=== PATIENT | female | born 1960 | race Caucasian/White ===

== ENCOUNTER → 2016-09-10 | Outpatient (CLI) | payer BC ==
[~2016-09-10] MED LIST: DEXAMETHASONE 4 MG/ML VIAL ONE; LIDOCAINE 2% 100 MG/5 ML SYR ONE; ONDANSETRON 4 MG/2 ML VIAL ONE; PROPOFOL 200 MG/20 ML VIAL ONE; ROCURONIUM 50 MG/5 ML VIAL ONE; SUGAMMADEX SODIUM 200 MG/2 ML VIAL IVP ONE; fentaNYL 100 MCG/2 ML INJ ONE
== END ==
LOC: CIMAGING 07:36
PROVIDERS: ATTEND Family Medicine
DX: K76.0 Fatty (change of) liver, not elsewhere classified (principal); K80.20 Calculus of gallbladder without cholecystitis without obstruction
CPT/HCPCS: 76700-PO; J1100; J2001; J2405; J2704; J3010

== ENCOUNTER 2016-09-12 13:51 | Observation (INO) | payer BC ==
[2016-09-12] MEDS ORDERED: BUPIVACAINE 0.5% 30 ML SDV ONE (13:54)
[2016-09-12] MEDS ORDERED: MIDAZOLAM 2 MG/2 ML VIAL ONE (14:11)
[2016-09-12] MEDS ORDERED: LIDOCAINE 1% 2 ML INJ ONE (14:12)
[2016-09-12] MEDS ORDERED: LR 1,000 ML IV ONE (14:24)
[2016-09-12] MEDS ORDERED: LIDOCAINE 1% 5 ML SDV ID PRN (14:24)
[2016-09-12] MEDS ORDERED: cefOXitin SODIUM 1 GM in D5W 50 ML IV ONE (14:30)
[2016-09-12] MEDS ORDERED: ADENOSINE 6 MG/2 ML VIAL ONE ×2 (15:03→15:06)
[2016-09-12] MEDS ORDERED: ONDANSETRON 4 MG/2 ML VIAL IVP PRN (15:23)
[2016-09-12] MEDS: METOPROLOL TARTRATE 50 MG TAB PO SCH (17:23)
[2016-09-12] MEDS: D5W 1/2 NS W/ 20 KCl/L 1,000 ML IV SCH (17:27)
--- NOTE | 2016-09-12 18:50 | SOAPPROG ---
SOAP Progress Note Assessment/Plan: Assessment: UNABLE TO DO PROCEDURE TODAY BECAUSE OF RAPID SVT DEVELOPING AFTER INDUCTION OF ANESTHESIA PATIENT IN SINUS RHYTHM NOW AFTER CONVERSION WITH ADENOSINE INITIATION OF BETA BLOCKADE Plan: A TEMP LAP CHOLY TOMORROW I FOR RHYTHM IS STABLE / SHE HAS BEEN SEEN BY CARDIOLOGY TO APPROVE THIS APPROACH 09/12/16 18:49 Objective: Vital Signs Temp Pulse Resp BP Pulse Ox 37 C 95 16 116/78 96 09/12/16 16:49 09/12/16 17:23 09/12/16 16:49 09/12/16 17:23 09/12/16 16:49 09/11/16 09/12/16 09/13/16 05:59 05:59 05:59 Intake Total 1000 Balance 1000 ICD10 Worksheet Patient Problems: Problems Problem Status Onset Chest pain Active Dyspnea Active
--- NOTE | 2016-09-12 18:51 | POSTOPPROG ---
Post Op Note Date of Operation: 09/12/16 Surgeon: Preet Lucero Anesthesiologist: MICHOACANO Anesthesia: GET(General Endotracheal) Pre-op Diagnosis: ACUTE CHOLECYSTITIS Post-op Diagnosis: SAME PLUS SVT Indication: PAIN Procedure: GENERAL ANESTHESIA Findings: PROCEDURE WAS TERMINATED BECAUSE OF DEVELOPMENT OF RAPID SVT Inf/Abcess present in the surg proc area at time of surgery?: No EBL: Minimal Complications: SVT
[2016-09-12] MEDS: HYDROmorphONE/DILAUDID 1 MG/ML SYR IVP PRN (22:12)
[2016-09-13] MEDS: D5W 1/2 NS W/ 20 KCl/L 1,000 ML IV SCH ×2 (02:06→12:29)
[2016-09-13] MEDS: HYDROmorphONE/DILAUDID 1 MG/ML SYR IVP PRN ×3 (02:11→17:18)
[2016-09-13 04:32] LABS: % IMMATURE GRANULYOCYTES 0.4 % (0.0-1.1); ABSOLUTE IMMATURE GRANULOCYTES 0.04 10^3/uL (0.00-0.10); ADD DIFF? NO; ADD MORPH? NO; ADD SCAN? NO; ATYPICAL LYMPHOCYTE FLAG 0 (0-99); FRAGMENT RBC FLAG 0 (0-99); HEMATOCRIT 44.6 % (38.0-47.0); LEFT SHIFT FLG 0 (0-99); LIPEMIA HEMOLYSIS FLAG 80 (0-99); MEAN CELL HEMOGLOBIN 29.6 pg (27.9-34.1); MEAN CELL HEMOGLOBIN CONCENTR. 33.6 g/dL (32.4-36.7); MEAN PLATELET VOLUME 9.8 fL (8.7-11.7); PLATELET CLUMPS FLAG 10 (0-99); PLATELET COUNT 279 10^3/uL (150-400); RED BLOOD CELL COUNT 5.07 10^6/uL (4.18-5.33); RED CELL DISTRIBUTION WIDTH 12.4 % (11.5-15.2)
[2016-09-13 05:01] LABS: ALANINE AMINOTRANSFERASE 54 IU/L (9-52); ALBUMIN 4.5 g/dL (3.5-5.0); ALKALINE PHOSPHATASE 59 IU/L (38-126); AMYLASE 43 IU/L (30-110); ANION GAP 14 mEq/L (8-16); ASPARTATE AMINOTRANSFERASE 30 IU/L (14-46); BILIRUBIN,TOTAL 0.7 mg/dL (0.1-1.4); BILIRUBIN-CONJUGATED 0.2 mg/dL (0.0-0.5); BILIRUBIN-UNCONJUGATED 0.5 mg/dL (0.0-1.1); CALCIUM 10.3 mg/dL (8.5-10.4); CARBON DIOXIDE 20 mEq/l (22-31); CHLORIDE 106 mEq/L (97-110); CREATININE 0.7 mg/dL (0.6-1.0); GLOMERULAR FILTRATION RATE > 60; GLUCOSE 146 mg/dL (70-100); SODIUM 140 mEq/L (134-144); TOTAL PROTEIN 6.9 g/dL (6.3-8.2)
[2016-09-13] MEDS ORDERED: cefOXitin SODIUM 2 GM in D5W 100 ML IV ONE (10:00)
[2016-09-13] MEDS ORDERED: BUPIVACAINE 0.5% 30 ML SDV ONE ×2 (10:48→14:46)
[2016-09-13] MEDS: METOPROLOL TARTRATE 50 MG TAB PO SCH ×2 (10:49→21:00)
[2016-09-13] MEDS ORDERED: PROPOFOL/EMULSION 500 MG/50 ML BOTTLE IV ONE (13:44)
[2016-09-13] MEDS ORDERED: PROPOFOL 200 MG/20 ML VIAL ONE (13:44)
[2016-09-13] MEDS ORDERED: LIDOCAINE 2% 5 ML SDV ONE (13:45)
[2016-09-13] MEDS ORDERED: ROCURONIUM 50 MG/5 ML VIAL ONE (13:45)
[2016-09-13] MEDS ORDERED: ADENOSINE 6 MG/2 ML VIAL ONE (14:12)
[2016-09-13] MEDS ORDERED: MIDAZOLAM 2 MG/2 ML VIAL ONE (14:26)
[2016-09-13] MEDS ORDERED: GLYCOPYRROLATE 0.2 MG/1 ML VIAL ONE (14:41)
[2016-09-13] MEDS ORDERED: DEXAMETHASONE 4 MG/ML VIAL ONE (14:55)
[2016-09-13] MEDS ORDERED: ONDANSETRON 4 MG/2 ML VIAL ONE (15:21)
[2016-09-13] MEDS ORDERED: SUGAMMADEX SODIUM 200 MG/2 ML VIAL IVP ONE (15:22)
[2016-09-13] MEDS ORDERED: KETOROLAC 30 MG/1 ML SDV ONE (15:39)
[2016-09-13] MEDS ORDERED: fentaNYL 100 MCG/2 ML INJ ONE ×2 (15:41→16:15)
[2016-09-13] MEDS ORDERED: HYDROmorphONE/DILAUDID 2 MG/ML INJ ONE (15:50)
[2016-09-13] MEDS ORDERED: DIAZEPAM 10 MG/2 ML SYR ONE (15:55)
--- NOTE | 2016-09-13 15:55 | SOAPPROG ---
SOAP Progress Note Assessment/Plan: Assessment: UNABLE TO DO PROCEDURE TODAY BECAUSE OF RAPID SVT DEVELOPING AFTER INDUCTION OF ANESTHESIA PATIENT IN SINUS RHYTHM NOW AFTER CONVERSION WITH ADENOSINE INITIATION OF BETA BLOCKADE Plan: A TEMP AIDAN ZABALA TOMORROW I FOR RHYTHM IS STABLE / SHE HAS BEEN SEEN BY CARDIOLOGY TO APPROVE THIS APPROACH 09/12/16 18:49 09/13/16 15:53 RISKS AND OPTIONS FULLY DISCUSSED/ NSR/ WILL PROCEED WITH AIDAN VELEZ Objective: Vital Signs Temp Pulse Resp BP Pulse Ox 36.7 C 54 L 18 123/83 H 93 09/13/16 10:51 09/13/16 12:36 09/13/16 10:51 09/13/16 10:51 09/13/16 10:51 Laboratory Results 09/13/16 03:44 09/13/16 03:44 09/12/16 09/13/16 09/14/16 05:59 05:59 05:59 Intake Total 2850 Balance 2850 ICD10 Worksheet Patient Problems: Problems Problem Status Onset Chest pain Active Dyspnea Active
[2016-09-13] MEDS ORDERED: LABETALOL HCL 50 MG/10 ML SYR ONE (15:56)
--- NOTE | 2016-09-13 15:59 | POSTOPPROG ---
Post Op Note Date of Operation: 09/13/16 Surgeon: Preet Lucero Anesthesiologist: MIC JACOBO Anesthesia: GET(General Endotracheal) Pre-op Diagnosis: CHOLECYSTITIS AND CHOLELITHIASIS Post-op Diagnosis: SAME Indication: PAIN Procedure: LAP CHOLY Findings: SINGLE LARGE STONE STUCK THE NECK OF THE GALLBLADDER / SMALL DUCTS Inf/Abcess present in the surg proc area at time of surgery?: Yes Depth: Organ Space EBL: Minimal Complications: NONE Specimen(s): GALLBLADDER
[2016-09-13] MEDS ORDERED: ACETAMINOPHEN 325 MG TAB PO PRN (17:48)
[2016-09-13] MEDS ORDERED: ACETAMINOPHEN/ASA/CAFFEINE 1 EACH TAB PO PRN (17:49)
[2016-09-13] MEDS ORDERED: HYDROmorphONE/DILAUDID 6 MG/30 ML PCA IV PRN (17:50)
[2016-09-13] MEDS ORDERED: NALOXONE HCL 0.4 MG/ML INJ IVP PRN (17:50)
[2016-09-13] MEDS ORDERED: GABAPENTIN 300 MG CAP PO PRN (19:47)
[2016-09-13] MEDS ORDERED: NON-FORMULARY NEW DRUG (Gabapentin [Neurontin] 600 MG) PO SCH (21:00)
[2016-09-13] MEDS: metFORMIN HCL 500 MG TAB PO SCH (21:03)
[2016-09-13] MEDS: GABAPENTIN 300 MG CAP PO SCH (21:03)
[2016-09-13] MEDS: THYROID PO SCH (21:04)
--- NOTE | 2016-09-14 06:49 | SOAPPROG ---
SOAP Progress Note Assessment/Plan: Assessment: Plan: 56yo F POD#1 s/p lap axel - No reported rhythm issues overnight - Tolerating clears, have advanced diet this AM - Abdominal exam reassuring, incisions c/d/i - Pain controlled, will use some oral narcotics this AM - If food goes well plan for dc later today 09/14/16 06:48 Objective: Vital Signs Temp Pulse Resp BP Pulse Ox 36.5 C 66 16 122/70 H 94 09/14/16 03:45 09/14/16 03:45 09/14/16 03:45 09/14/16 03:45 09/14/16 03:45 Laboratory Results 09/13/16 03:44 09/13/16 03:44 09/13/16 09/14/16 09/15/16 05:59 05:59 05:59 Intake Total 2850 3600 Output Total 10 Balance 2850 3590 ICD10 Worksheet Patient Problems: Problems Problem Status Onset Chest pain Active Dyspnea Active
[2016-09-14] MEDS: metFORMIN HCL 500 MG TAB PO SCH ×2 (08:27→20:45)
[2016-09-14] MEDS: PANTOPRAZOLE SODIUM 40 MG TAB PO SCH (08:28)
[2016-09-14] MEDS: HYDROCODONE/APAP 5/325 TAB PO PRN ×3 (08:28→20:46)
[2016-09-14] MEDS: GABAPENTIN 300 MG CAP PO SCH ×2 (08:30→20:45)
[2016-09-14] MEDS: METOPROLOL TARTRATE 50 MG TAB PO SCH ×2 (08:31→20:46)
[2016-09-14] MEDS: NON-FORMULARY NEW DRUG (Omeprazole [Prilosec 20 Mg] 20 MG) PO SCH (08:33)
[2016-09-14] MEDS: CANAGLIFLOZIN 100 MG PO SCH (08:44)
[2016-09-14] MEDS ORDERED: NON-FORMULARY NEW DRUG (Omeprazole [Prilosec 20 Mg] 20 MG) PO SCH (09:00)
--- NOTE | 2016-09-14 14:16 | SOAPPROG ---
SOAP Progress Note Assessment/Plan: Assessment: UNABLE TO DO PROCEDURE TODAY BECAUSE OF RAPID SVT DEVELOPING AFTER INDUCTION OF ANESTHESIA PATIENT IN SINUS RHYTHM NOW AFTER CONVERSION WITH ADENOSINE INITIATION OF BETA BLOCKADE Plan: A TEMP AIDAN ZABALA TOMORROW I FOR RHYTHM IS STABLE / SHE HAS BEEN SEEN BY CARDIOLOGY TO APPROVE THIS APPROACH 09/12/16 18:49 09/13/16 15:53 RISKS AND OPTIONS FULLY DISCUSSED/ NSR/ WILL PROCEED WITH AIDAN VELEZ 09/14/16 14:15 SOME NAUSEA AFTER EATING TOO MUCH / AFEBRILE /VITAL SIGNS OKAY/ WOUNDS OKAY/ ABDOMEN SOFT WITH SLIGHT DISTENTION / POSSIBLY HOME TODAY OR IN THE A.M. Objective: Vital Signs Temp Pulse Resp BP Pulse Ox 36.4 C 71 18 120/63 88 L 09/14/16 12:53 09/14/16 12:53 09/14/16 12:53 09/14/16 12:53 09/14/16 12:53 Laboratory Results 09/13/16 03:44 09/13/16 03:44 09/13/16 09/14/16 09/15/16 05:59 05:59 05:59 Intake Total 2850 3600 500 Output Total 10 Balance 2850 3590 500 ICD10 Worksheet Patient Problems: Problems Problem Status Onset Chest pain Active Dyspnea Active
[2016-09-14] MEDS: THYROID PO SCH (20:44)
[2016-09-15] MEDS: HYDROCODONE/APAP 5/325 TAB PO PRN (03:06)
[2016-09-15 07:24] VITALS: BP 107/61; PULSE 67; RESP 20; TEMP 97.8; O2SAT 91
[2016-09-15] MEDS: CANAGLIFLOZIN 100 MG PO SCH (07:51)
[2016-09-15] MEDS: metFORMIN HCL 500 MG TAB PO SCH (07:53)
[2016-09-15] MEDS: GABAPENTIN 300 MG CAP PO SCH (07:53)
[2016-09-15] MEDS: METOPROLOL TARTRATE 50 MG TAB PO SCH (07:54)
[2016-09-15] MEDS: NON-FORMULARY NEW DRUG (Omeprazole [Prilosec 20 Mg] 20 MG) PO SCH (07:55)
[2016-09-15] MEDS: THYROID PO SCH (07:56)
[2016-09-15] MEDS: PANTOPRAZOLE SODIUM 40 MG TAB PO SCH (07:56)
--- NOTE | 2016-09-15 11:31 | SOAPPROG ---
ENRRIQUE Progress Note Assessment/Plan: Assessment: UNABLE TO DO PROCEDURE TODAY BECAUSE OF RAPID SVT DEVELOPING AFTER INDUCTION OF ANESTHESIA PATIENT IN SINUS RHYTHM NOW AFTER CONVERSION WITH ADENOSINE INITIATION OF BETA BLOCKADE Plan: A TEMP AIDAN ZABALA TOMORROW I FOR RHYTHM IS STABLE / SHE HAS BEEN SEEN BY CARDIOLOGY TO APPROVE THIS APPROACH 09/12/16 18:49 09/13/16 15:53 RISKS AND OPTIONS FULLY DISCUSSED/ NSR/ WILL PROCEED WITH AIDAN VELEZ 09/14/16 14:15 SOME NAUSEA AFTER EATING TOO MUCH / AFEBRILE /VITAL SIGNS OKAY/ WOUNDS OKAY/ ABDOMEN SOFT WITH SLIGHT DISTENTION / POSSIBLY HOME TODAY OR IN THE A.M. 09/15/16 11:30 DOING OK/ AFEBRILE/ EATING WELL/ HOME ON BETEBLOCKERS/ FU NEXT WEEK/ FU WITH CARDIOLOGY Objective: Vital Signs Temp Pulse Resp BP Pulse Ox 36.6 C 67 20 107/61 91 L 09/15/16 07:21 09/15/16 07:21 09/15/16 07:21 09/15/16 07:21 09/15/16 07:21 Laboratory Results 09/13/16 03:44 09/13/16 03:44 09/14/16 09/15/16 09/16/16 05:59 05:59 05:59 Intake Total 3600 1850 Output Total 10 Balance 3590 1850 ICD10 Worksheet Patient Problems: Problems Problem Status Onset Chest pain Active Dyspnea Active
== END 2016-09-15 13:19 | disposition home or self-care (01) ==
LOC: INTOOBSV 13:51 → F3E 13:51 → F2W 16:24
PROVIDERS: ADMIT Surgery; ATTEND Surgery
PROC: 0FT44ZZ Resection of Gallbladder, Percutaneous Endoscopic Approach (ICD-10-PCS; principal; 2016-09-13 13:45)
DX: K80.61 Calculus of gallbladder and bile duct with cholecystitis, unspecified, with obstruction (principal); I47.1 Supraventricular tachycardia; K21.9 Gastro-esophageal reflux disease without esophagitis; E11.9 Type 2 diabetes mellitus without complications; Z53.09 Procedure and treatment not carried out because of other contraindication
CPT/HCPCS: 47562; G0378; J0153; J0694; J0697; J1100; J1170; J1885; J2250; J2405; J2704; J3010

== ENCOUNTER → 2017-07-12 | Outpatient (CLI) | payer BC | LOC: FIMAGING 07:41 | PROVIDERS: ATTEND Family Medicine | DX: Z12.31 Encounter for screening mammogram for malignant neoplasm of breast (principal) ==

== ENCOUNTER → 2017-07-18 | Outpatient (CLI) | payer BC | LOC: FIMAGING 13:30 | PROVIDERS: ATTEND Family Medicine | DX: R92.0 Mammographic microcalcification found on diagnostic imaging of breast (principal) ==

== ENCOUNTER 2017-09-04 13:13 | Emergency (ER) | payer BC ==
[2017-09-04 13:39] VITALS: BP 131/84
[2017-09-04] MEDS ORDERED: IBUPROFEN 600 MG TAB PO ONE (13:55)
--- NOTE | 2017-09-04 13:55 | EDPHY ---
H & P Stated Complaint: back,abd pain. Time Seen by Provider: 09/04/17 13:35 HPI/ROS: CHIEF COMPLAINT: Right-sided back pain HISTORY OF PRESENT ILLNESS: 57-year-old female with NIDDM presents with right- sided back pain. Onset of pain 1 week ago. The back pain is [id number] and increases with movement and bending over. The pain radiates to her right side. No associated symptoms. Not taking pain medications. REVIEW OF SYSTEMS: complete 10 point ROS negative except at noted in the HPI - Personal History Current Tetanus/Diphtheria Vaccine: Yes Current Tetanus Diphtheria and Acellular Pertussis (TDAP): Yes Tetanus Vaccine Date: 09/2011 - Medical/Surgical History Hx Asthma: No Hx Chronic Respiratory Disease: No Hx Diabetes: Yes Hx Cardiac Disease: Yes Hx Renal Disease: No Hx Cirrhosis: No Hx Alcoholism: No Hx HIV/AIDS: No Hx Splenectomy or Spleen Trauma: No Other PMH: SVT, fallopian tube ligation, tonsillectomy, cholecystectomy, full thyroidectomy, DM II, herniated disks. - Social History Smoking Status: Never smoked - Physical Exam Exam: General Appearance: Alert, pleasant Eyes: Pupils equal and round, no conjunctival pallor ENT, Mouth: Mucous membranes moist Neck: Normal inspection Respiratory: Lungs are clear to auscultation Cardiovascular: Regular rate and rhythm Gastrointestinal: Abdomen is soft and nontender Back: Right lower thoracic paraspinous tenderness that reproduces the pain Neurological: A&O, nonfocal, normal gait Skin: Warm and dry, no rash Extremities: Normal inspection Psychiatric: Mood and affect normal Constitutional: Initial Vital Signs Temperature (C) 36.6 C 09/04/17 13:35 Heart Rate 88 09/04/17 13:35 Respiratory Rate 18 09/04/17 13:35 Blood Pressure 131/84 H 09/04/17 13:35 O2 Sat (%) 94 09/04/17 13:35 O2 Delivery Mode Room Air Allergies/Adverse Reactions: No Known Allergies Allergy (Verified 11/12/11 23:23) Home Medications: Medication Instructions Recorded Canagliflozin [Invokana] 100 mg PO DAILY 09/12/16 Gabapentin [Neurontin 300 MG (*)] 300 mg PO BID PRN 09/12/16 Gabapentin [Neurontin] 600 mg PO BID 09/12/16 Naproxen Sodium [Aleve 220 MG (*)] 440 mg PO DAILY PRN 09/12/16 Omeprazole [Prilosec 20 mg] 20 mg PO DAILY 09/12/16 metFORMIN HCL [Metformin HCl] 1,000 mg PO BID 09/12/16 Levothyroxine 09/04/17 Phentermine HCl 09/04/17 Vicodin 5-300 mg Tablet 09/04/17 Medical Decision Making ED Course/Re-evaluation: This patient presents with right-sided back pain, consistent with musculoskeletal etiology. I do not suspect renal colic or intra-abdominal pathology. Dip urinalysis is positive for glucose only. d/w pt, checks BS daily, usual BS 130-140, HGB A1C 6.5 today. Ibuprofen 600 mg orally given. - Data Points Medications Given: Discontinued Medications Ibuprofen (Motrin) 600 mg PO EDNOW ONE Stop: 09/04/17 13:56 Last Admin: 09/04/17 13:58 Dose: 600 mg Departure - Departure Disposition: Home, Routine, Self-Care Clinical Impression: Strain of mid-back Qualifiers: Encounter type: initial encounter Qualified Code(s): S29.012A - Strain of muscle and tendon of back wall of thorax, initial encounter Condition: Good Instructions: Thoracic Back Strain (ED) Additional Instructions: Ibuprofen 600 mg 3 times daily while the pain persists. Referrals: Ephraim Chairez MD [Primary Care Provider] - As per Instructions
== END 2017-09-04 14:20 | disposition home or self-care (01) ==
DX: S29.012A Strain of muscle and tendon of back wall of thorax, initial encounter (principal); E11.9 Type 2 diabetes mellitus without complications; Z79.84 Long term (current) use of oral hypoglycemic drugs; X58.XXXA Exposure to other specified factors, initial encounter